=== PATIENT | female | born 1980 | race Caucasian/White ===

== ENCOUNTER 2018-12-14 12:41 | Emergency (ER) | payer MEDICAID ==
[~2018-12-14] VITALS: Ht 160 cm; Wt 85.1 kg
[2018-12-14 12:45] VITALS: BP 121/84
[2018-12-14] MEDS ORDERED: KETOROLAC 30 MG/1 ML IM ONE (14:30)
[2018-12-14] MEDS ORDERED: METHOCARBAMOL 750 MG TABLET PO ONE (14:30)
[2018-12-14] MEDS ORDERED: HYDROmorphone 2 MG/ML, 1ML IM ONE (14:30)
[2018-12-14] MEDS ORDERED: HYDROmorphone 2 MG/ML, 1ML ONE (14:44)
[2018-12-14] MEDS ORDERED: KETOROLAC 30 MG/1 ML ONE (14:53)
[2018-12-14] MEDS ORDERED: METHOCARBAMOL 750 MG TABLET ONE (14:53)
== END 2018-12-14 15:24 | disposition home or self-care (01) ==
LOC: ED 15:10
DX: M62.830 Muscle spasm of back (principal); Z85.41 Personal history of malignant neoplasm of cervix uteri
CPT/HCPCS: 96372; 99283; J1170; J1885

== ENCOUNTER 2018-12-22 14:09 | Emergency (ER) | payer MEDICAID ==
[~2018-12-22] VITALS: Ht 165.1 cm; Wt 83.8 kg
[2018-12-22 14:11] VITALS: BP 120/84
== END 2018-12-22 15:08 | disposition home or self-care (01) ==
LOC: ED 14:36
DX: S39.012A Strain of muscle, fascia and tendon of lower back, initial encounter (principal); S33.5XXA Sprain of ligaments of lumbar spine, initial encounter; Z90.710 Acquired absence of both cervix and uterus; F17.200 Nicotine dependence, unspecified, uncomplicated; W18.30XA Fall on same level, unspecified, initial encounter; Y93.89 Activity, other specified; Y92.89 Other specified places as the place of occurrence of the external cause; Y99.8 Other external cause status
CPT/HCPCS: 99283